=== PATIENT | female | born 1975 | race Caucasian/White ===

== ENCOUNTER 2023-11-01 07:39 | Outpatient (CLI) | payer BC, SELFPAY ==
--- NOTE | ~2023-11-01 | XR_ITS ---
XR cervical spine 4-5V Ordering provider: Ricardo Yin History: . no injury headaches with neck pain for 2-3 months . Comparison: None. FINDINGS: VERTEBRAL BODIES: Normal height and alignment. No visible fracture or subluxation. The dens is intact . DISK SPACES: Narrowing of the disc C5-C6. Uncovertebral joint osteoarthritic changes of the same leve l no significant intervertebral foraminal narrowing. PARASPINOUS SOFT TISSUES: No prevertebral soft tissue swelling. IMPRESSION: No acute osseous abnormality cervical spine. Degenerative disc disease at the level of C5-C6. Reviewed, dictated and finalized at location A.
== END 2023-11-01 07:40 ==
DX: G44.89 Other headache syndrome (principal); M50.30 Other cervical disc degeneration, unspecified cervical region
CPT/HCPCS: 72050

== ENCOUNTER 2024-03-27 08:47 | Outpatient (CLI) | payer BC, SELFPAY ==
--- NOTE | ~2024-03-27 | XR_ITS ---
EXAMINATION: XR abdomen/kub 1V DATE: 03/27/2024 09:07 INDICATION: Left flank pain. TECHNIQUE: A supine view of the abdomen on 3 radiographs was obtained. COMPARISON: CT abdomen and pelvis 11/22/2017 FINDINGS: Calcifications in the pelvis are likely phleboliths. There is a 4 mm stone in left kidney. IMPRESSION: 1. 4 mm left kidney stone. Reviewed, dictated and finalized at location A. ION DIRECTOR IMPRESSION: 1. 4 mm left kidney stone.
== END 2024-03-27 08:48 | disposition home or self-care (01) ==
PROVIDERS: Visit Provider Nurse Practitioner
DX: N20.0 Calculus of kidney (principal); Z87.442 Personal history of urinary calculi
CPT/HCPCS: 74018